=== PATIENT | male | born 1945 | race Caucasian/White ===

== ENCOUNTER → 2018-03-10 05:52 | Day surgery (SDC) | payer MEDICARE ==
--- NOTE | 2018-03-01 08:32 | HP ---
CC: Dr. Lal; Dr. Gabriel; Dr. Nagel ADMITTING HISTORY AND PHYSICAL: DATE OF ADMISSION: 03/10/18 ADMITTING DIAGNOSIS: Bladder lesions (probable transitional cell carcinoma - carcinoma in situ). PLANNED PROCEDURE: Cystoscopy, transurethral resection of bladder lesions. SURGEON: Dr. Nagel. HISTORY OF PRESENT ILLNESS: Sancho Alarcon is a 72-year-old ex-heavy smoker who had recently been seen in followup and had undergone cystoscopy for microscopic hematuria and some increasing voiding symptoms. He was noted to have multiple areas in the posterior bladder wall with an appearance consi stent with superficial transitional cell carcinoma and possibly carcinoma in situ. PAST MEDICAL HISTORY: Significant for: 1. Essential hypertension. 2. Atherosclerosis. 3. Hyperlipidemia. 4. Restrictive cardiomyopathy. 5. Peripheral artery disease. MEDICATIONS: On admission: 1. Metoprolol 50 mg a day. 2. Plavix 75 mg a day (to stop 5 days prior to surgery). 3. Aspirin 81 mg a day. 4. Lisinopril 5 mg a day. 5. Amitriptyline 50 mg q.h.s. 6. Cilostazol 100 mg b.i.d. 7. Crestor 20 mg a day. ALLERGIES: No known drug allergies. SMOKING HISTORY: He is a former heavy smoker with a [id number] smoking history who quit several ye ars ago. REVIEW OF SYSTEMS: He denies any chest pain or shortness of breath. He was also recently evaluated by Dr. Gabriel for followup on his history of cardiomyopathy. PHYSICAL EXAMINATION GENERAL: Reveals a pleasant, elderly gentleman. VITAL SIGNS: Blood pressure is 120/80, pulse 83 per minute, oxygen saturation 93% on room air, tempe rature 96.3. LUNGS: Clear bilaterally. CARDIOVASCULAR: Regular rate and rhythm. S1, S2. ABDOMEN: Soft without masses. Testicles are descended bilaterally and a large right spermatocele is noted. IMPRESSION: A 72-year-old former, heavy smoker with the above described bladder lesions. PLAN: Plan is for cystoscopy, transurethral resection of bladder lesions. [id number]/[facility] #: [id number]
[~2018-03-10 05:52] MED LIST: Acetaminophen TAB* 325 MG ONE; Acetaminophen TAB* 325 MG PO PRN; Buffered Lidocaine 0.9% SYRIN* 5 ML/SYR SYRINGE INTRADERM ONE; Buffered Lidocaine 0.9% SYRIN* 5 ML/SYR SYRINGE ONE; Dexamethasone IV* 4 MG/ML 1 ML (4 MG) ONE; DiMENhydriNATE IV* 50 MG/ML VIAL IV PUSH PRN; Famotidine IV* 10 MG/ML 2 ML (20 mg) IV ONE; Famotidine IV* 10 MG/ML 2 ML (20 mg) ONE; HYDROmorphone INJ1* 1 MG/ML SYRINGE IV PRN; Ketorolac INJ* 30 MG/ML 1 ML VIAL ONE; Lidocaine 2% JELLY* 6 ML JELLY TOPICAL ONE; Lidocaine 2% PF * 5 ML VIAL ONE; Midazolam* 1 MG/ML 5 ML VIAL (5 MG) ONE; Morphine VIAL* 10 MG/ML 1 ML VIAL ONE; Naloxone* 0.4 MG/ML 1 ML VIAL IV PRN; Ondansetron INJ* 2 MG/ML VIAL ONE; Propofol* 10 MG/ML 20 ML BTL IV PUSH ONE; cefTRIAXone(*) 2 GM ADDV.VIAL IVPB ONE; fentaNYL* 50 MCG/ML 2 ML VIAL (100 MCG VIAL) ONE; oxyCODONE TAB* 5 MG TAB ONE; oxyCODONE TAB* 5 MG TAB PO PRN
[2018-03-10 09:57] VITALS: BP 128/73
--- NOTE | 2018-03-10 22:27 | OP ---
CC: Dr. Lal * DATE OF OPERATION: 03/10/18 - [facility] DATE OF : 41 SURGEON: Wali Nagel MD ANESTHESIOLOGIST: Dr. Fall. ANESTHESIA: General. PRE-OP DIAGNOSES: 1. Hematuria. 2. Bladder lesions. POST-OP DIAGNOSES: 1. Hematuria. 2. Bladder lesions. OPERATIVE PROCEDURE: Cystoscopy, transurethral resection and fulguration of multiple bladder lesions (3 to 4 cm). INDICATIONS: Mr. Alarcon is a 72-year-old gentleman who was evaluated and noted to have the above-mentioned bladder lesions. OPERATIVE FINDINGS: 1. Normal appearing urethra. 2. Mildly enlarged prostate. 3. Multiple areas of thickened hyperemic mucosa in posterior and anterior bladder wall (consistent with transitional cell carcinoma-carcinoma in situ). COMPLICATIONS: None. POSTOPERATIVE CONDITION: Stable. DESCRIPTION OF PROCEDURE: After induction of general anesthesia, the patient was placed in dorsal lithotomy position. Sequential compression devices were in place and functioning. Initial cystoscopy revealed a normal-appearing urethra and mildly enlarged prostate and normally located right and left ureteral orifices. Retail Bakery Manager biopsies were obtained and sent for histopathology. The resectoscope was introduced and all of the abnormal appearing areas were resected and/or fulgurated. At the end of the procedure, there was no evidence of bladder perforation and hemostasis appeared satisfactory. The patient tolerated the procedure satisfactorily and was transferred back to the recovery area after placement of a 22-[place] Russell catheter for temporary bladder drainage. [id number]/[facility] #: [id number] MTDD
== END | disposition home or self-care (01) ==
LOC: OR 05:52
PROVIDERS: ATTEND Urology
DX: N32.9 Bladder disorder, unspecified (principal); R31.29 Other microscopic hematuria; Z87.891 Personal history of nicotine dependence; I10 Essential (primary) hypertension; E78.5 Hyperlipidemia, unspecified; I73.9 Peripheral vascular disease, unspecified; I42.8 Other cardiomyopathies; I70.90 Unspecified atherosclerosis; Z79.01 Long term (current) use of anticoagulants
CPT/HCPCS: 88305; A9270-GY; J0696; J1100; J1885; J2250; J2270; J2405; J2704; J3010

== ENCOUNTER → 2018-11-17 05:32 | Day surgery (SDC) | payer MEDICARE ==
--- NOTE | 2018-11-15 15:22 | HP ---
CC: Dr. Lal; Dr. Gabriel * ADMITTING HISTORY AND PHYSICAL: DATE OF ADMISSION: 11/17/18 ADMITTING DIAGNOSES: 1. Hematuria. 2. Bladder lesion, probable carcinoma in situ of urinary bladder. PLANNED PROCEDURE: Cystoscopy and excision biopsies of multiple bladder lesions. SURGEON: Dr. Nagel. HISTORY OF PRESENT ILLNESS: Sancho Alarcon is a 73-year-old former smoker who had undergone transurethral resection of bladder lesions in March 2008. Visually, the lesions at that time had the appearance of carcinoma in situ of the urinary bladder; however, the pathology was reported as completely benign. He was recently seen in followup and on followup cystoscopy, had multiple areas in the anterior and posterior bladder stuart suspicious for carcinoma in situ by visual appearance again and I requested the pathologist to review the pathology report from March 2018, which was successfully done and this time this included that indeed there had been elements of carcinoma in situ, which had not been picked up on the original pathology report. He is now being brought in for cystoscopy and excision biopsies of the bladder lesions. PAST MEDICAL HISTORY: Significant for, 1. Atherosclerosis. 2. Hypertension. 3. History of restrictive cardiomyopathy. 4. Hyperlipidemia. 5. Peripheral artery disease. MEDICATIONS: Include: 1. Plavix 75 mg a day (currently on hold). 2. Aspirin 81 mg a day. 3. Metoprolol 50 mg a day. 4. Amitriptyline 50 mg q.h.s. 5. Lisinopril 5 mg daily. 6. Cilostazol 100 mg b.i.d. 7. Crestor 20 mg daily. ALLERGIES: No known drug allergies. FAMILY HISTORY: Negative for bladder cancer. SMOKING HISTORY: He has a 50 plus pack year smoking history and quit a few years ago. REVIEW OF SYSTEMS: He is otherwise in fairly good health and is still fairly active physically. He denies any chest pain or shortness of breath. PHYSICAL EXAMINATION GENERAL: Reveals a pleasant elderly gentleman. VITAL SIGNS: Blood pressure is 124/66, pulse 84 per minute, oxygen saturation 93% on room air, temperature 96.8. LUNGS: Clear bilaterally. CARDIOVASCULAR EXAM: Regular rate and rhythm. S1, S2. ABDOMEN: Soft without masses. IMPRESSION: A 73-year-old former smoker with multiple bladder lesions, suspicious for carcinoma in situ of the urinary bladder. PLAN: Cystoscopy, excision biopsies of multiple bladder lesions. [id number]/[facility] #: [id number] MTDD
[~2018-11-17 05:32] MED LIST changes: -Acetaminophen TAB* 325 MG ONE; -Acetaminophen TAB* 325 MG PO PRN; -Buffered Lidocaine 0.9% SYRIN* 5 ML/SYR SYRINGE INTRADERM ONE; -Buffered Lidocaine 0.9% SYRIN* 5 ML/SYR SYRINGE ONE; +Buffered Lidocaine 1% SYRIN* 1 ML/SYRINGE INTRADERM ONE; -Dexamethasone IV* 4 MG/ML 1 ML (4 MG) ONE; +Etomidate* 2 MG/ML 10 ML VIAL ONE; +Furosemide IV* 10 MG/ML 2 ML VIAL (20 MG) ONE; -HYDROmorphone INJ1* 1 MG/ML SYRINGE IV PRN; -Ketorolac INJ* 30 MG/ML 1 ML VIAL ONE; +Lactated Ringers 1000 ML Bag* 1,000 ML IV SCH; +Levalbuterol 1.25MG/0.5ML NEB INH ONE; +Levalbuterol 1.25MG/0.5ML NEB ONE; +Metoclopramide IV* 5 MG/ML 2 ML VIAL IV SLOW PU ONE; +Metoclopramide IV* 5 MG/ML 2 ML VIAL ONE; -Midazolam* 1 MG/ML 5 ML VIAL (5 MG) ONE; -Morphine VIAL* 10 MG/ML 1 ML VIAL ONE; +Phenylephrine 10 MG/ML VIAL* 1 ML VIAL ONE; -Propofol* 10 MG/ML 20 ML BTL IV PUSH ONE; -oxyCODONE TAB* 5 MG TAB ONE; -oxyCODONE TAB* 5 MG TAB PO PRN
[2018-11-17] MEDS: fentaNYL* 50 MCG/ML 2 ML VIAL (100 MCG VIAL) IV PRN ×2 (08:56→09:19)
--- NOTE | 2018-11-17 09:30 | OP ---
CC: Dr. Lal * DATE OF OPERATION: 11/17/18 - [facility] DATE OF : 41 SURGEON: Dr. Nagel. ANESTHESIOLOGIST: Dr. Langford. ANESTHESIA: General. PRE-OP DIAGNOSIS: Multiple bladder lesions with an appearance suspicious for carcinoma in situ of the urinary bladder. POST-OP DIAGNOSIS: Multiple bladder lesions with an appearance suspicious for carcinoma in situ of the urinary bladder. OPERATIVE PROCEDURE: Cystoscopy, excision, biopsy, and fulguration of multiple bladder lesions. COMPLICATIONS: None. BLOOD LOSS: Less than 25 cc. INDICATIONS: Sancho Alarcon is a 73-year-old former smoker who was recently seen in followup and noted to have the above-mentioned findings on office cystoscopy. He is now being brought in for excision, biopsies and fulguration. OPERATIVE FINDINGS: 1. Mildly enlarged prostate. 2. Multiple areas of thickened, raised hyperemic mucosa especially in the posterior bladder wall with an appearance suspicious for carcinoma in situ. POSTOPERATIVE CONDITION: Stable. DESCRIPTION OF PROCEDURE: After induction of general anesthesia, the patient was placed in dorsal lithotomy position, sequential compression devices were in place and functioning. Initial cystoscopy revealed mild narrowing of the urethral meatus, which was carefully dilated. The remainder of the urethra was unremarkable. The prostate is mildly enlarged. The bladder was examined. The right and left ureteral orifices appeared normal in position and configuration. There were multiple areas, especially in the posterior bladder wall, more predominantly on the right side where the mucosa was raised, thickened, and hyperemic. Using cold cup biopsy forceps, multiple excision biopsies were performed and sent for histopathology. Next, the resectoscope was introduced and the areas that had been biopsied were extensively cauterized using the coagulating current. At the end of the procedure, hemostasis appeared satisfactory and there was no evidence of bladder perforation. A 22-Bulgarian silicone Russell was placed without difficulty and connected to a drainage bag. The patient tolerated the procedure satisfactorily and was transferred back to the recovery area in stable condition. [id number]/[facility] #: [id number] MTDD
[2018-11-17 11:10] VITALS: BP 163/78
== END | disposition home or self-care (01) ==
LOC: OR 05:32
PROVIDERS: ATTEND Urology
DX: D09.0 Carcinoma in situ of bladder (principal); Z87.891 Personal history of nicotine dependence; I10 Essential (primary) hypertension; E78.5 Hyperlipidemia, unspecified; Z79.01 Long term (current) use of anticoagulants; E11.9 Type 2 diabetes mellitus without complications; Z79.84 Long term (current) use of oral hypoglycemic drugs; F41.8 Other specified anxiety disorders; J44.9 Chronic obstructive pulmonary disease, unspecified; I25.5 Ischemic cardiomyopathy
CPT/HCPCS: 88305; A9270-GY; J0696; J1940; J2405; J2765; J3010

== ENCOUNTER 2019-06-06 05:04 | Inpatient (IN) | payer MEDICARE ==
[2019-06-06] MEDS ORDERED: Heparin for STEMI(*) 5,000 UNITS/ML 1 ML VIAL IV ONE ×2 (05:17→05:20)
[2019-06-06] MEDS ORDERED: Aspirin 81 mg CHEW TAB* 81 MG TAB.CHEW PO ONE (05:17)
[2019-06-06] MEDS ORDERED: Ticagrelor* 90 MG TAB PO ONE ×2 (05:17→05:20)
[2019-06-06] MEDS ORDERED: Nitroglycerin TAB 0.4 MG* 0.4 MG TAB ONE (05:20)
[2019-06-06] MEDS ORDERED: Aspirin 81 mg CHEW TAB* 81 MG TAB.CHEW ONE (05:20)
[2019-06-06] MEDS ORDERED: Ondansetron INJ* 2 MG/ML VIAL ONE (05:21)
[2019-06-06] MEDS ORDERED: Morphine 4 MG/ML VIAL (1 ml) 4 MG/ML VIAL ONE (05:21)
--- NOTE | 2019-06-06 05:22 | ED ---
HPI Chest Pain - HPI Summary HPI Summary: The patient is a 74 y/o M presenting to [facility] accompanied by with a chief complaint of mid-sternal CP sudden onset about two hours ago that has resolved. He reports that he was woken up by the pain which continued to worsen for two hours but then resolved upon arrival. The pain did not radiate anywhere. He denies any SOB, nausea, diaphoresis, or lightheadedness. He is not in any pain. He states that this is the third episode of similar pain over the last few weeks. His rubber chemist is Dr. Gabriel. PMHx: DM, CAD, iliac stent, HTN, peripheral vascular disease, asthma. Former smoker, occasional EtOH, no substance use. Medications reviewed. Allergies noted. - History of Current Complaint Chief Complaint: EDChestPainROMI Hx Obtained From: Patient Onset/Duration: Started Hours Ago, Resolved Timing: Lasting Hours - two Initial Severity: Severe Current Severity: None Pain Intensity: 0 Pain Scale Used: 0-10 Numeric Chest Pain Location: Mid Sternal Chest Pain Radiates: No Character: Sharp/Stabbing Aggravating Factor(s): Nothing Alleviating Factor(s): Spontaneous Resolution Associated Signs and Symptoms: Positive: Chest Pain. Negative: Shortness of Breath, Lightheadedness, Diaphoresis, Nausea - Allergy/Home Medications Allergies/Adverse Reactions: Allergies Allergy/AdvReac Type Severity Reaction Status Date / Time No Known Allergies Allergy Verified 06/06/19 05:15 Home Medications: Home Medications Rosuvastatin Calcium 20 mg PO DAILY 06/06/19 [History Confirmed 06/06/19] PMH/Surg Hx/FS Hx/Imm Hx Endocrine/Hematology History: Reports: Hx Diabetes - BORDERLINE. NO MEDS. Cardiovascular History: Reports: Hx Coronary Artery Disease - 2008 ILIAC STENT, Hx Hypertension, Hx Peripheral Vascular Disease - stent right leg, Other Cardiovascular Problems/Disorders - cardiomyopathy Respiratory History: Reports: Hx Asthma - INTERMITTENT NO INHALER History: Reports: Other Problems/Disorders - CYSTO BIOPSY Sensory History: Reports: Hx Contacts or Glasses - GLASSES Denies: Hx Hearing Aid Opthamlomology History: Reports: Hx Contacts or Glasses - GLASSES - Surgical History Surgical History: Yes Surgery Procedure, Year, and Place: RIGHT ILIAC ARTERY ANGIOPLASTY, STENT 2007 [facility] [place]. 2015, left ring trigger finger. larygeal polyps, 2006. 1970, foot fx Hx Anesthesia Reactions: No Infectious Disease History: No Infectious Disease History: Denies: Traveled Outside the [place] in Last 30 Days - Family History Known Family History: Positive: Hypertension - Social History Alcohol Use: Occasionally Alcohol Amount: holidays Hx Substance Use: No Substance Use Type: Reports: None Hx Tobacco Use: Yes Smoking Status (MU): Former Smoker Amount Used/How Often: 2 packs a aday for 50 yrs Length of Time of Smoking/Using Tobacco: 40 YRS Have You Smoked in the Last Year: No Review of Systems Negative: Skin Diaphoresis Positive: Chest Pain - mid-sternal (resolved) Negative: Shortness Of Breath Negative: Nausea Neurological: Other - Negative: lightheadedness All Other Systems Reviewed And Are Negative: Yes Physical Exam - Summary Physical Exam Summary: Appearance: Well-appearing, Well-nourished, lying in bed comfortably Skin: Warm, dry, no obvious rash Eyes: sclera anicteric, no conjunctival pallor ENT: mucous membranes moist, pharynx appears normal Neck: Supple, nontender Respiratory: Clear to auscultation, no signs of respiratory distress Cardiovascular: Normal S1, S2. No murmurs. Normal distal pulses in tibial and radial bilaterally. Abdomen: Soft, nontender, normal active bowel sounds present Musculoskeletal: Normal, Strength/ROM Intact Neurological: A&Ox3, awake and alert, mentation is normal, speech is fluent and appropriate Psychiatric: affect is normal, does not appear anxious or depressed Triage Information Reviewed: Yes Vital Signs On Initial Exam: Initial Vitals Temp Pulse Resp BP Pulse Ox 98.4 F 116 15 149/77 90 06/06/19 05:13 06/06/19 05:13 06/06/19 05:13 06/06/19 05:13 06/06/19 05:13 Vital Signs Reviewed: Yes Procedures - Sedation Patient Received Moderate/Deep Sedation with Procedure: No Diagnostics - Vital Signs Vital Signs Temp Pulse Resp BP Pulse Ox 06/06/19 05:13 98.4 F 116 15 149/77 90 - Laboratory Result Diagrams: 06/06/19 05:30 06/06/19 05:30 Lab Statement: Any lab studies that have been ordered have been reviewed, and results considered in the medical decision making process. - Radiology CXR Radiology Interpretation Completed By: ED Physician Summary of Radiographic Findings: No acute abnormality. ED physician has reviewed and interpreted this imaging report. Pending official read. - EKG 0506 Cardiac Rate: Tachycardia - 116 bpm EKG Rhythm: Sinus Tachycardia Summary of EKG Findings: Sinus tachycardia at [address] elevations in aVR with lateral depressions. ED physician has reviewed and interpreted this EKG. 0517 Cardiac Rate: Tachycardia - 103 bpm EKG Rhythm: Sinus Tachycardia Summary of EKG Findings: Sinus tachycardia at [address] elevations in aVR with lateral and inferior depressions. Improved compared to previous. ED physician has reviewed and interpreted this EKG. Re-Evaluation - Re-Evaluation First Eval Re-Evaluation Time: 05:30 Change: Unchanged Comment: Patient still in no pain. Chest Pain Course/Dx - Course Course Of Treatment: 74 y/o M presenting with non-radiating mid-sternal CP lasting for two hours before completely resolving immediately before arriving. No associated symptoms of SOB, nausea, diaphoresis, or lightheadedness. History of DM, CAD, iliac stent, HTN, peripheral vascular disease, asthma. Physical exam reveals no acute abnormalities. EKG at 0506 reveals sinus tachycardia at 116, ST elevations in aVR with lateral depressions. STEMI called at 0515. EKG at 0517 reveals sinus tachycardia at 103 bpm, ST elevations in aVR with lateral and inferior depressions, better compared to previous. STEMI cancelled at 0534, per Dr. Jackson, interventionalist. Blood work obtained and reveals RBCs of 4.00 , hemoglobin of 12.7, hematocrit of 37, MCH of 32, MPV of 7.0, glucose of 200, and troponin of 1.14. Patient administered Brilinta, Zofran, NTG, Heparin, ASA, and Morphine. Chest x-ray, per my interpretation, is negative for acute findings. The patient is a sign-out from Dr. Sancho Mary MD, to Dr. Doe Bach MD, at change of shift at 0700 on 06/06/2019, pending admission to hospitalist. Dx NSTEMI. - Diagnoses Provider Diagnoses: NSTEMI (non-ST elevated myocardial infarction) During the Visit The Following Alert/Code Occurred: STEMI - 0515; cancelded at 0534 - Provider Notifications Discussed Care Of Patient With: Robles Jackson - interventionalist Time Discussed With Above Provider: 05:19 Instructed by Provider To: Other - I discussed the patient's case with Dr. Jackson, who will look at the patients EKGs and return the call. AT 0534, Dr. Jackson cancels STEMI as the patient is pain-free. Dr. Jackson recommends admission to hospitalist. Discharge ED - Sign-Out/Discharge Documenting (check all that apply): Sign-Out Patient Signing out patient TO: Doe Bach - Patient is a sign-out to Dr. Doe Bach MD, at 0700 on 06/06/2019, pending admission to hospitalist. - Discharge Plan Condition: Stable Referrals: Chris Lal MD [Primary Care Provider] - - Attestation Statements Document Initiated by Scribe: Yes Documenting Scribe: Geetha Carolina Provider For Whom Scribe is Documenting (Include Credential): Dr. Sancho Mary MD Scribe Attestation: IGeetha, scribed for Dr. Sancho Mary MD on 06/06/19 at 0727. Status of Scribe Document: Ready
[2019-06-06 06:00] LABS: ABS Eosinophils 0.3 10^3/ul (0-0.6); ABS Lymphocytes 1.4 10^3/ul (1.0-4.8); ABS Monocytes 0.7 10^3/ul (0-0.8); ABS Neutrophils 3.9 10^3/ul (1.5-7.7); Hematocrit 37 % (42-52); Hemoglobin 12.7 g/dL (14.0-18.0); Lymphocyte % 22.1 %; Mean Corpuscular HGB Conc 34 g/dL (31-36); Mean Corpuscular Hemoglobin 32 pg (27-31); Mean Corpuscular Volume 94 fL (80-94); Nucleated Red Blood Cells % 0.2; Platelet Count 197 10^3/uL (150-450); Red Cell Distribution Width 14 % (10-15); White Blood Count 6.3 10^3/uL (3.5-10.8)
[2019-06-06 06:05] LABS: INR 0.92 (0.82-1.09)
[2019-06-06 06:18] LABS: ALT 22 U/L (7-52); AST 27 U/L (13-39); Albumin 3.8 g/dL (3.2-5.2); Albumin/Globulin Ratio 1.5 (1-3); Alkaline Phosphatase 99 U/L (34-104); Anion Gap 7 mmol/L (2-11); BUN/Creatinine Ratio 21.3 (8-20); Blood Urea Nitrogen 23 mg/dL (6-24); CO2 Carbon Dioxide 28 mmol/L (22-32); Calcium 8.7 mg/dL (8.6-10.3); Chloride 104 mmol/L (101-111); EGFR African American 80.4 (>60); EGFR Non-African American 66.5 (>60); Globulin 2.6 g/dL (2-4); Glucose 200 mg/dL (70-100); LDL Cholesterol Direct 61 mg/dL; Sodium 139 mmol/L (135-145); Total Protein 6.4 g/dL (6.4-8.9)
[2019-06-06 06:24] LABS: Troponin I 1.14 ng/mL (<0.03)
--- NOTE | 2019-06-06 07:09 | ED ---
Progress - Progress Note Progress Note: Patient is a sign-out at 07:00 on 06/06/[address] Sancho Mary MD to Dr. Doe Bach MD at shift change, pending further workup and admission to [facility]. At 07:10, patient states he had hematuria. His chest pain is resolved after being given aspirin and started on a heparin drip. At 07:58, Dr. Mirian Marquez reviewed the patient's case and agrees to admit the patient to [facility] with a diagnosis of acute IN. Patient will be admitted to [facility] with a diagnosis of acute IN. Re-Evaluation - Re-Evaluation First Eval Re-Evaluation Time: 05:30 Change: Unchanged Comment: Patient still in no pain. Second Eval Re-Evaluation Time: 07:10 Change: Improved Comment: At 07:10, patient states he had hematuria. His chest pain is resolved after being given aspirin and started on a heparin drip. Course/Dx - Course Course Of Treatment: 74 y/o M presenting with non-radiating mid-sternal CP lasting for two hours before completely resolving immediately before arriving. No associated symptoms of SOB, nausea, diaphoresis, or lightheadedness. History of DM, CAD, iliac stent, HTN, peripheral vascular disease, asthma. STEMI called at 0515 and canceled at 0534, per Dr. Jackson, interventionalist. Blood work obtained and reveals RBCs of 4.00, hemoglobin of 12.7, hematocrit of 37, MCH of 32, MPV of 7.0, glucose of 200, and troponin of 1.14. Patient administered Brilinta, Zofran, NTG, Heparin, ASA, and Morphine. - Diagnoses Provider Diagnoses: NSTEMI (non-ST elevated myocardial infarction), Acute IN During the Visit The Following Alert/Code Occurred: STEMI - 0515; cancelded at 0534 - Provider Notifications Discussed Care Of Patient With: Mirian Marquez - At 07:58, Dr. Mirian Marquez reviewed the patient's case and agrees to admit the patient to [facility] with a diagnosis of acute IN. Time Discussed With Above Provider: 07:58 Instructed by Provider To: Admit As Inpatient - I discussed the patient's case with Dr. Jackson, who will look at the patients EKGs and return the call. AT 0534, Dr. Jackson cancels STEMI as the patient is pain-free. Discharge ED - Sign-Out/Discharge Documenting (check all that apply): Patient Departure - Admit - Discharge Plan Condition: Stable Disposition: ADMITTED TO [facility] Referrals: Chris Lal MD [Primary Care Provider] - - Attestation Statements Document Initiated by Scribe: Yes Documenting Scribe: Essie Rey Provider For Whom Scribe is Documenting (Include Credential): Doe Bach MD Scribe Attestation: Essie Palencia, scribed for Doe Bach MD on 06/06/19 at 0806. Status of Scribe Document: Ready
[2019-06-06] MEDS ORDERED: Heparin VIAL(*) 10000 UNITS/ML VIAL (TEN THOUSAND) SUBCUT PRN (07:39)
[2019-06-06] MEDS ORDERED: Heparin VIAL(*) 5000 UNITS/ML VIAL (FIVE THOUSAND) SUBCUT PRN (07:40)
[2019-06-06] MEDS: Heparin DRIP 25,000 UNITS(*) 25,000 UNITS/500 ML BAG IV SCH (07:54)
[2019-06-06] MEDS ORDERED: Acetaminophen TAB* 325 MG PO PRN (08:21)
[2019-06-06 08:44] LABS: Troponin I 1.13 ng/mL (<0.03)
[2019-06-06] MEDS ORDERED: Cilostazol TAB* 100 MG PO SCH (09:00)
[2019-06-06] MEDS ORDERED: Lisinopril TAB* 5 MG PO SCH (09:00)
--- NOTE | 2019-06-06 09:43 | CONS ---
CC: Dr. Lal; Dr. Gabriel.* INTERVENTIONAL CARDIOLOGY CONSULT NOTE: DATE OF CONSULT: 06/06/19 PRIMARY CARE PHYSICIAN: Dr. Lal. BEAN DUMPER: Dr. Gabriel. HISTORY OF PRESENT ILLNESS: A 74-year-old male with diabetes, peripheral arterial disease with the diagnosis of "nonischemic cardiomyopathy" brought to the ER by his because of prolonged chest pain. Interventional Cardiology was consulted because of diffuse ST segment depression. I have reviewed [facility] and [facility]. Apparently, the diagnosis of nonischemic cardiomyopathy is based on a Persantine perfusion scan in 2007 that revealed a fixed inferior wall defect, which corrected with attenuation correction, and an echo that reported ejection fraction of 45%. As far as I can ascertain, he has never had a coronary angiogram. His most recent echo reported some dilatation of ascending aorta and LVEF of 50% to 55% with normal wall motion. He has no antecedent history of known coronary artery disease. For the past 3 weeks, he has had 3 episodes of precordial chest discomfort, each one at night. It is a deep ache, which is substernal without radiation or associated symptoms, it usually lasts 1-1/2 to 2 hours and then resolves spontaneously. He had 1 of these episodes this morning at 3:30, it was resolved spontaneously after he arrived in the ER. EKG at 0506 hours revealed sinus tach at [address] depression in inferior and anterolateral leads with normal conduction. Repeat EKG 11 minutes later when he was pain-free revealed a heart rate of 103 with less, but still persisting inferior and lateral ST depression. He is presently completely chest pain-free, comfortable. He reports chronic exertional dyspnea for many years with intermittent edema. He is a former heavy smoker. He has never been diagnosed with COPD, does not use bronchodilators. He has a history of peripheral arterial disease with prior apparently right superficial femoral artery intervention here by Dr. Parnell around 2007. CTA at that time reported none of critical bilateral iliac disease and right SFA occlusion. I do not see a subsequent CTA. He follows with Dr. Chase of [place] , he is scheduled to see her down here next spring. He does have bilateral limiting claudication in his calves, no rest pain, no nonhealing wounds. PAST MEDICAL HISTORY: Hypertension, hyperlipidemia, diabetes on no medical therapy for which he does not follow any particular diet, prior bladder CA, post apparently per patient transurethral resection followed by BCG. He follows with Dr. Nagel. PAD. PREHOSPITAL MEDICATIONS PER MEDENT: 1. Aspirin 81 mg daily. 2. Pletal 100 mg b.i.d. 3. Crestor 20 mg daily. 4. Lisinopril 5 mg daily. 5. Toprol-XL 50 mg daily. 6. Plavix 75 mg daily. ALLERGIES: None. FAMILY HISTORY: Negative for premature coronary artery disease. SOCIAL HISTORY: He is . He is a former heavy smoker. Former alcohol user. REVIEW OF SYSTEMS: COAT CHECKER: No history of TIA or CVA. GI: He denies peptic ulcer disease or bleeding. Heme: No history of malignancy or anemia. Pulmonary: He confirms long-term wheezing. Remainder all negative PHYSICAL EXAM: On exam in the ER, he is pain-free, he is comfortable, he is not tachypnea or orthopneic. Blood pressure 153/75, pulse 105, sinus tach. His lungs he has bilaterally prolonged expiratory phase with expiratory wheezing. JVP does not appear to be elevated. Carotids are palpable with a very loud right carotid bruit and a soft left carotid bruit. Cardiac Exam: I cannot feel the apex or RV. He does have a probable S4 gallop, I do not hear a murmur or rub. The abdomen is obese, nontender, with normal bowel sounds, cannot feel the aorta or liver edge. Femoral pulses are palpable but diminished. Radial pulses are normal. Pedal pulses are diminished with a palpable posterior tibial bilaterally, palpable left dorsalis pedis, I cannot palpate his right dorsalis pedis. He has no obvious wounds, his feet do not have ischemic skin changes. DIAGNOSTIC STUDIES/LAB DATA: Hemoglobin is 12.7, hematocrit 37, was normal earlier this year. He is not microcytic. INR is normal, random blood sugar is 200, lactate 1.2, troponin elevated at 1.14. His LDL is 61. Chest x-ray by my review shows no acute infiltrate or heart failure on a portable film. There may be a slight vascular prominence. IMPRESSION: 1. Acute coronary syndrome/non-ST elevation infarct. He has had prolonged episodes 3 times in the past 3 weeks, today's episode was prolonged, accompanied by transient diffuse ST depression, which was improved significantly with resolution of chest pain spontaneously. EKG is consistent with posterior infarct as well as a non-ST elevation infarct. He will be treated medically. He is not having emergent catheterization as he is currently hemodynamically and electrically stable, pain- free and there is an issue of potential vascular access. I doubt that there is any problem with radial access, but he may have sufficiently severe iliofemoral disease to be an issue in case he needed counterpulsation. This will need to be evaluated. I discussed with him and his that he almost certainly will need further cardiac investigation with likely a coronary angiography. In the ER, he received a loading dose of Brilinta, heparin, and aspirin. 2. Chronic obstructive pulmonary disease. By exam, he has expiratory wheezing consistent with chronic obstructive pulmonary disease. He is on no inhaler therapy. I will defer to the hospitalist service for management. 3. Diabetes, untreated and likely uncontrolled. Hemoglobin A1c is pending. 4. Hypertension, on low-dose lisinopril. 5. Bladder cancer. He has never had hematuria with his current noninvasive cancer, which is under treatment and according to the patient apparently stable. He will be admitted to the hospital service, we will follow, evaluate the vascular access noninvasively. In the interim, he will be treated medically for acute coronary syndrome. Dr. Young will be following. Thank you for the consultation. [id number]/[facility] #: [id number] ELOISE
--- NOTE | 2019-06-06 10:50 | ECHO ---
*[facility]* [place] [address] Fax #: [phone] Transthoracic Echocardiogram Patient: Sancho Alarcon : 1945 Study Date: 06/06/2019 Age: 74 Gender: M HR: 84 bpm Height: 68 in /172.7 cm BSA: 1.98 m^2 Weight: 184.6 lb /83.9 kg BMI: 28.1 kg/m^2 *Solar Sales Representative: * Tika Ulloa *Referring Physician: * Robles Jackson MD *Reading Physician: * Clement Salazar MD Indications: Chest Pain, unspecified. History: Coronary artery disease. Risk factors: Hypertension. Diabetes mellitus. Conclusions Summary: - Left ventricle: The cavity size is normal. Wall thickness is mildly increased. Systolic function is mildly reduced. The estimated ejection fraction is 40-45%. Diffuse hypokinesis with regional variations. Patient declined definity imaging enhancement agent to better visualize endocardium which limits wall motion evaluation - Right ventricle: The cavity size is normal. Systolic function is normal. - Left atrium: The atrium is normal in size. - Pulmonary arteries: Systolic pressure can not be accurately estimated. - No significant valvular abnormalities noted. Recommendations: Compared to prior study from 10/2017, LVEF was previously 50-55% Study data: Transthoracic echocardiogram. Procedure: Transthoracic echocardiography was performed. Image quality was adequate. Complete 2D, spectral Doppler, and color flow Doppler. Location: Emergency department. Patient status: Inpatient. Patient room number: 5. Findings Left ventricle: The cavity size is normal. Wall thickness is mildly increased. Systolic function is mildly reduced. The estimated ejection fraction is 40-45%. Diffuse hypokinesis with regional variations. Patient declined definity imaging enhancement agent to better visualize endocardium which limits wall motion evaluation Left ventricular diastolic function parameters are normal. Right ventricle: The cavity size is normal. Systolic function is normal. Left atrium: The atrium is normal in size. Right atrium: The atrium is normal in size. Mitral valve: The valve is structurally normal. There is no evidence of stenosis. There is trace regurgitation. Aortic valve: Not well visualized. The valve is probably trileaflet. There is no evidence of stenosis. There is no significant regurgitation. Tricuspid valve: The leaflets are normal thickness. There is no evidence of stenosis. There is trace regurgitation. Pulmonic valve: The leaflets are normal thickness. There is no evidence of stenosis. There is trace regurgitation. Aorta: The aortic root appears normal. The aortic arch appears normal. Pericardium: There is no significant pericardial effusion. Pulmonary arteries: Systolic pressure can not be accurately estimated. Systemic veins: Inferior vena cava: The vessel is normal in size. Measurements Left ventricle Value Ref Aortic valve Value Ref SCOTTIE, LAX (L) 3.6 cm 4.2 - Peak v, S 1.44 m/sec ---- 5.8 VTI, S 26.0 cm ---- ESD, LAX 2.5 cm 2.5 - Mean grad, S 4.0 mm Hg ---- 4.0 Peak grad, S 8.0 mm Hg ---- FS, LAX 31 % 25 43 VERNON, VTI 2.11 cm^2 ---- PW, ED, LAX (H) 1.4 cm 0.6 - VERNON, Vmax 2.10 cm^2 ---- 1.0 FS 31 % 25 43 Mitral valve Value Ref Mid-wall FS 9 % -------- Peak E 0.8 m/sec ---- PW, ED (H) 1.4 cm 0.6 - Peak A 1.16 m/sec ---- 1.0 Decel time 123 ms ---- PW/ID, ED 0.39 -------- Peak grad, D 2.6 mm Hg ---- E', avg, TDI 9.7 cm/sec -------- Peak E/A ratio 0.7 ---- E/e', avg, TDI 8 <=14 Pulmonic valve Value Ref LVOT Value Ref Peak v, S 0.89 m/sec ---- Diam, S 2.00 cm -------- Peak grad, S 3.0 mm Hg ---- Area 3.1 cm^2 -------- Peak lakia, S 0.96 m/sec -------- Aortic root Value Ref Mean grad, S 2 mm Hg -------- Root diam 3.4 cm <4.1 SV 55 ml -------- Ascending aorta Value Ref Ventricular septum Value Ref AAo AP diam, S 3.2 cm ---- IVS, ED (H) 1.4 cm 0.6 - 1.0 Aortic arch Value Ref Arch diam 2.1 cm ---- Right ventricle Value Ref SCOTTIE, LAX 3.0 cm -------- Decending aorta Value Ref SCOTTIE minor ax, A4C 3.5 cm 1.9 - Carmen peak lakia 0.61 m/sec ---- mid 3.5 Inferior vena cava Value Ref Left atrium Value Ref Diam 2.6 cm ---- ML dim, A4C 3.3 cm -------- SI dim, A4C 4.4 cm -------- Vol/bsa, ES, 1-p 19 ml/m^2 12 - 37 A4C Vol/bsa, ES, A/L 22 ml/m^2 16 - 34 Right atrium Value Ref SI dim, ES 3.8 cm 3.4 - 5.3 ML dim, ES, A4C 2.9 cm 2.6 - 4.4 SI dim, ES, A4C 3.8 cm 3.4 - 5.3 Legend: (L) and (H) collin values outside specified reference range. Prepared and electronically signed by Clement Salazar MD 06/06/2019 10:50
[2019-06-06] MEDS: Aspirin EC TAB* 81 MG TAB.EC PO SCH (10:54)
[2019-06-06] MEDS: Cholecalciferol TAB* 1000 UNITS PO SCH (10:54)
[2019-06-06] MEDS: Vitamin THERAPEUTIC TAB PO SCH (10:55)
[2019-06-06] MEDS: Metoprolol Tartrate TAB* 25 MG PO SCH ×3 (10:55→20:07)
[2019-06-06] MEDS: Lisinopril TAB* 5 MG PO SCH (10:55)
[2019-06-06] MEDS: Clopidogrel TAB* 75 MG PO SCH (10:55)
--- NOTE | 2019-06-06 12:01 | HP ---
CC: Dr. Lal; Dr. Gabriel; Dr. Chase; Dr. Nagel HISTORY AND PHYSICAL: DATE OF ADMISSION: 06/06/19 TIME OF EVALUATION: 8:15 a.m. PRIMARY CARE PROVIDER: Dr. Lal. BOAT CAPTAIN: Dr. Gabriel. VASCULAR SURGEON: Dr. Chase at [facility]. UROLOGIST: Dr. Nagel. CHIEF COMPLAINT: Chest pain. HISTORY OF PRESENT ILLNESS: Mr. Alarcon is a 74-year-old male with a past medical history of hyper tension, hyperlipidemia, peripheral arterial disease, bladder CA who presented to the ED with complai nts of chest pain. The patient states that this is his third episode of chest pain over the past 2 weeks. He states this is the first episode he was sleeping and was woken up by retrosternal "ache" that he r ated at 5/10. The pain resolved by itself and he had no associated symptoms. He was able to return to sleep and did not seek any medical attention. He states that a week after that he had another sim ilar episode and once again the symptoms resolved by itself and he did not do anything about it. Ravin y today around 3:30 in the morning, he woke up with the same retrosternal ache, but he states that th is time it was severe, 10/10 intensity, and at that point, he decided to come to the emergency room f or further evaluation. He denies palpitations, diaphoresis, nausea, shortness of breath, or other sy mptoms associated with it. He states that by the time he got to the emergency department room, the p ain completely resolved, and at the time of interview, he offers no complaints. He states that he has exercise limitation due to his peripheral vascular disease causing vascular cla udication. He can walk a block on the flat surface. He can go upstairs, but he needs to take breaks to be able to do so, but he states that he used to be able to exercise much more in the past and now his leg pain limits him. He denies fever, chills, nausea, vomiting, diarrhea. The patient states that after arriving in the ospital he has voided twice and both had significant hematuria with macias-red urine. He states that he has not had hematuria for many months after completing treatment with Dr. Robe for bladder CA. PAST MEDICAL HISTORY: 1. Bladder CA (probable carcinoma in situ), status post excision biopsies with Dr. Nagel, November 2018 pathology revealed urothelial carcinoma in situ. 2. Hypertension. 3. Hyperlipidemia. 4. Peripheral arterial disease, status post stent to the right lower extremity. MEDICATION LIST: 1. Amitriptyline 50 mg p.o. bedtime. 2. Aspirin 81 mg p.o. daily. 3. Cholecalciferol 1000 units p.o. daily. 4. Cilostazol 100 mg p.o. b.i.d. 5. Clopidogrel 75 mg p.o. at bedtime. 6. Lisinopril 5 mg p.o. daily. 7. Metoprolol tartrate 50 mg p.o. daily. 8. Multivitamin 1 capsule p.o. daily. 9. Ropinirole 0.25 mg p.o. at bedtime. 10. Rosuvastatin 10 mg p.o. daily. ALLERGIES: No known drug allergies. FAMILY HISTORY: The patient denies family history of heart disease or malignancy. He does not rememb er what his parents of. SOCIAL HISTORY: The patient was a smoker, greater than 50-pack year history, and he quit when his wi fe was diagnosed with lung cancer (she was a smoker too). He quit in 2008. REVIEW OF SYSTEMS: A 14-point review of systems performed and all the pertinent negatives and positi ves are in the HPI. PHYSICAL EXAMINATION GENERAL: The patient is pleasant elderly gentleman lying in the ED stretcher, in no acute distress. VITAL SIGNS: Temperature 98.4, heart rate is 96, respiratory rate is 24, oxygen saturation 95% on ro om air, blood pressure is 158/73. HEENT: Pupils are equal. Moist mucous membranes. CHEST: Breath sounds bilaterally with no added sounds. CVS: Normal S1, S2. Regular rate and rhythm. ABDOMEN: Obese, soft, nontender, nondistended. Bowel sounds are present. EXTREMITIES: No edema. He has DP pulses palpable. NEUROLOGIC: He is alert and oriented x3, able to move all 4 extremities. DIAGNOSTIC STUDIES/LAB DATA: CBC showed WBC of 6.3, hemoglobin of 12.7, hematocrit of 37, platelets of 197, 62% neutrophils. INR is 0.92. Chemistry showed a sodium of 139, potassium of 4, chloride o f 104, bicarb of 28, BUN of 23, creatinine of 1.08. glucose of 200, lactic acid is 1.2, calcium is 8. 7. Total bilirubin 0.3, AST is 27, ALT is 22, alk phos 99. First troponin was 1.14, second one is 1 .13. BNP is 48. LDL is 61. EKG done 06/06/19 at 5:06 a.m. shows sinus tachycardia at 116 beats per minute with diffuse ST depres sions in II, III, aVF, V3 through V6; ST elevations in AVR and V1. Repeat EKG on the same date at 5:1 7 a.m. showed some improvement of the ST changes especially in II, III, aVF, but still present in the lateral leads. Chest x-ray shows trace linear air space opacification at the right lung base that could be related t o atelectasis versus infiltrate. ASSESSMENT AND PLAN: Mr. Alarcon is a 74-year-old male with a past medical history of hypertension , hyperlipidemia, peripheral arterial disease, bladder cancer who presented to the emergency room wit h complaints of chest pain, found to have an ST elevation myocardial infarction. 1. ST elevation myocardial infarction. The patient had resolution of his [facility]. He was seen in consultation by Interventional Cardiology (Dr. Jackson), and due to his hi story of peripheral vascular disease with prior stenting, the plan at this point is to have vascular studies done of his aorta and iliac for preparation for cardiac cath. He will be continued on aspirin, clopidogrel (after discussion with Dr. Jackson, decision was made to not switch him to Brilinta at this time), and a heparin drip as well as the cilostazol he was using b efore. He will be admitted to the Intensive Care Unit and he will be under close monitoring until decision i s made regarding cardiac cath. He will be on metoprolol and lisinopril. His statin was changed to high dose atorvastatin. 2. Hyperglycemia. Although the patient does not carry a diagnosis of type 2 diabetes, his fasting g lucose was 200, granted this was in the setting of stress. We will check a hemoglobin A1c. 3. Hypertension. It is controlled. We will continue lisinopril and metoprolol. 4. DVT prophylaxis. The patient has a score of 3 on the DVT Prophylaxis Assessment Guide. He is al ready on the heparin drip. 5. Code status is full. TIME SPENT: Approximately 60 minutes was spent with the patient interview, medical records review, r eview of physical examination to complete this admission, more than half of this time was spent face- to-face with the patient and coordination of care. [id number]/[facility] #: [id number]
[2019-06-06 13:02] LABS: Urine Appearance Clear; Urine Bilirubin Negative (Negative); Urine Blood 3+ (Negative); Urine Color Yellow; Urine Glucose Negative (Negative); Urine Ketones Negative (Negative); Urine Nitrite Negative (Negative); Urine Protein Negative (Negative); Urine Specific Gravity 1.016 (1.010-1.030); Urine Urobilinogen Negative (Negative)
[2019-06-06 13:05] LABS: Urine Bacteria Absent (Absent); Urine Red Blood Cell 3+(>10/hpf) (Absent); Urine White Blood Cell 2+(11-20/hpf) (Absent)
[2019-06-06 13:21] LABS: Blood Urea Nitrogen 20 mg/dL (6-24); EGFR African American 100.6 (>60); EGFR Non-African American 83.1 (>60)
[2019-06-06] MEDS ORDERED: Norepinephrine 16MCG/ML IVPRE* 0 MCG/0 ML BAG IV ONE (15:03)
[2019-06-06 16:58] LABS: Troponin I 1.94 ng/mL (<0.03)
[2019-06-06] MEDS ORDERED: Atorvastatin* 80 MG TAB PO SCH (17:00)
[2019-06-06] MEDS ORDERED: Iodixanol* (CONTRAST) 320 MG/ML 100 ML SDV IV ONE (17:03)
--- NOTE | 2019-06-06 20:05 | PN ---
Hospitalist Progress Note Date of Service: 06/06/19 HOSPITALIST ADDENDUM Case d/w Urology (Dr Amador) - since patient's hematuria started after heparin initiation, hematuria is likely heparin induced. Of note, patient was on Aspirin and Plavix as outpatient with no issues. He recommended 20Fr Russell catheter placement to avoid obstruction by clot. If hematuria progresses, patient may require bladder irrigation. He also recommended CT urogram to r/o renal lesion as hematuria source; it was negative for renal lesions. As per Dr Amador, bladder source of bleeding can be controlled even with DAPT on board and they would not perform any surgical procedure before patient has his Cardiology procedure (including stents) anyway. As per Urology, patient can proceed with cardiac cath, drug eluting stent, and DAPT for 6 months.
[2019-06-06 20:49] LABS: Troponin I 1.17 ng/mL (<0.03)
[2019-06-06] MEDS ORDERED: Ropinirole TAB* 0.5 MG TAB PO SCH (21:00)
[2019-06-06] MEDS ORDERED: Amitriptyline TAB* 50 MG PO SCH (21:00)
[2019-06-07] MEDS: Metoprolol Tartrate TAB* 25 MG PO SCH ×2 (02:12→09:03)
[2019-06-07 04:10] LABS: ABS Eosinophils 0.2 10^3/ul (0-0.6); ABS Monocytes 0.8 10^3/ul (0-0.8); ABS Neutrophils 7.7 10^3/ul (1.5-7.7); Eosinophil % 1.9 %; Hematocrit 41 % (42-52); Hemoglobin 13.1 g/dL (14.0-18.0); Lymphocyte % 10.6 %; Mean Corpuscular HGB Conc 32 g/dL (31-36); Mean Corpuscular Hemoglobin 30 pg (27-31); Mean Corpuscular Volume 93 fL (80-94); Platelet Count 203 10^3/uL (150-450); Red Blood Count 4.44 10^6 /uL (4.18-5.48); Red Cell Distribution Width 14 % (10-15); White Blood Count 9.7 10^3/uL (3.5-10.8)
[2019-06-07 04:21] LABS: BUN/Creatinine Ratio 18.6 (8-20); Calcium 8.6 mg/dL (8.6-10.3); EGFR African American 104.6 (>60); EGFR Non-African American 86.5 (>60); Potassium 4.3 mmol/L (3.5-5.0)
[2019-06-07] MEDS ORDERED: NS 0.9% 1000 ML** 1,000 ML IV SCH (06:00)
[2019-06-07] MEDS: Aspirin EC TAB* 81 MG TAB.EC PO SCH ×2 (06:44→08:41)
[2019-06-07] MEDS: Lisinopril TAB* 5 MG PO SCH ×2 (06:44→08:41)
[2019-06-07] MEDS: Clopidogrel TAB* 75 MG PO SCH ×2 (06:44→08:41)
[2019-06-07] MEDS ORDERED: fentaNYL* 50 MCG/ML 2 ML VIAL (100 MCG VIAL) ONE (07:12)
[2019-06-07] MEDS ORDERED: Heparin 2 UNITS/ML IVPREMIX* 2,000 ML IV ONE (07:12)
[2019-06-07] MEDS ORDERED: Midazolam* 1 MG/ML 5 ML VIAL (5 MG) ONE (07:12)
[2019-06-07] MEDS ORDERED: VERAPAMIL 2.5 MG/ML 2 ML VIAL ** 5 mg/2 ml ONE (07:12)
[2019-06-07] MEDS ORDERED: Heparin(*) 1000 UNIT/ML 10 ML VIAL CATH LAB IV ONE (07:12)
[2019-06-07] MEDS ORDERED: nitroGLYCERIN DRIP* 25,000 MCG/250 ML BTL ONE (07:12)
[2019-06-07] MEDS ORDERED: Lidocaine 1% INJ* 10 MG/ML 30 ML SDV ONE (07:13)
[2019-06-07] MEDS ORDERED: Iohexol 350 (CONTRAST) 200 ML MDV IV ONE ×2 (07:13)
[2019-06-07] MEDS: Heparin DRIP 25,000 UNITS(*) 25,000 UNITS/500 ML BAG IV SCH (09:03)
[2019-06-07] MEDS: Cholecalciferol TAB* 1000 UNITS PO SCH (09:06)
[2019-06-07] MEDS: Vitamin THERAPEUTIC TAB PO SCH (09:07)
--- NOTE | 2019-06-07 10:19 | CATH ---
CC: Dr. Chris Lal; Dr. Clement Salazar; Dr. Mark Amador; Dr. Moisés Jerome at [facility] [place] [facility] * CARDIAC CATHETERIZATION REPORT: DATE OF PROCEDURE: 06/07/19 INDICATION FOR THE PROCEDURE: The patient presents with non-ST segment elevation myocardial infarction with mildly reduced left ventricular systolic function globally now for coronary arteriography to rule out the presence of critical CAD. PROCEDURE: Coronary arteriography. CONSENT: The patient was interviewed and examined in the intensive care unit, where the risk and benefits were explained, he understood and wished to proceed. APPROACH: The right radial artery was assessed by ultrasound and found to be acceptable for an approach and as such this was the approach utilized. PRECARDIAC CATHETERIZATION LABORATORY RESULTS: Hemoglobin and hematocrit of 13.1 and 41 with platelet count of 203,000. BUN and creatinine 16 and 0.86. Sodium 134, potassium of 4.3, chloride 101, bicarb 24. Troponin-I 0.17. EQUIPMENT UTILIZED: 1. Right radial artery sheath with a 6-Australian glide sheath slender. 2. Diagnostic coronary catheter with a 5-Australian TIG-4 catheter. 3. Diagnostic guidewire was a 260 length [place] curved guidewire. 4. The closure device utilized with a Vasc Band regular. MEDICATIONS GIVEN: Included Xylocaine locally, the radial artery cocktail of 300 mcg of nitroglycerin and 3 mg of verapamil. An additional 2000 units of heparin were given due to a low ACT. A 12.5 mcg of fentanyl were given for back discomfort. DESCRIPTION OF PROCEDURE: The patient was brought to the cardiovascular laboratory and a formal timeout was performed. Under ultrasound guidance the right radial artery was cannulated and the sheath was placed. Coronary arteriography was performed. Following this the sheath and cath were removed and the hemostasis was obtained with Vasc Band. The total contrast used was 40 cc of Omnipaque dye. The radiation exposure included 3.7 minutes of fluoro time. The air kerma radiation was 1164 milligray. The DAP radiation was 5239 microgray/meter square. RESULTS: CORONARY ARTERIOGRAPHY: A. Right coronary artery - a dominant vessel supplying several acute marginal branches with a large low-lying one that paralleled the PDA in addition to the PDA and a bifurcating posterior left ventricular branch. There was heavy calcification seen throughout the proximal and midportion of the vessel. There was an area of stenosis that appeared eccentric in nature with calcium involved with a narrowing of at least 70%. Past this point with the takeoff of the acute marginal branch larger in nature that paralleled the PDA. The continuation of the right coronary artery had a somewhat diffusely diseased area immediately past this point with narrowing that appeared to me as much as 70%. B. Left coronary artery: 1. Left main: There was tapering at the distal left main with significant haziness suggesting the presence of a critical lesion that in its worst view appeared to be 75% to 80%. The ostium of the LAD appeared to have at least 60% stenosis. Heavy calcification was seen in this as well. 2. Left anterior descending artery: The left anterior descending artery supplied a high first diagonal branch followed by continuation to the apical region. There was mild narrowing noted just after the first septal broodmare barn groom, but no critical stenosis was seen in the LAD system. The first diagonal branch had a mild-to- moderate disease in its proximal portion with reduction noted approximately 45% to 50%. 3. Circumflex artery - a nondominant vessel supplying a very thin first and second obtuse marginal branch with a moderate size bifurcating mid obtuse marginal branch and ending in a low lying bifurcating obtuse marginal branch. Of note, in the proximal to midportion prior to the mid bifurcating obtuse marginal branch, there was an eccentric area of stenosis noted that appeared in its worst view to be 65% to 70%, appearing less in other views. OVERALL ASSESSMENT: Significant coronary artery disease involving critical left and distal left main lesion with extension into LAD with heavy calcification as well as proximal to mid circumflex moderate to significant disease and mid right coronary artery significant narrowing. Of note, with regard to the right coronary artery there appears to be an eccentric significant stenosis past the takeoff of a mid acute marginal branch prior to the posterior descending artery, which may suggest that separate grafting to both the acute marginal branch and the distal right coronary artery are needed. This will be further assessed by Dr. Moisés Jerome. Of note, I also discussed this case personally with Dr. Jerome and recommended that the patient have his lungs assessed as well as his carotid arteries in light of history of moderate to significant disease in the left carotid artery by ultrasound. He understood this and took this on advisement. One other issue that the patient has been on Plavix and clearly will need to be delayed in his therapy for open heart surgery until the Plavix has worn off. For now, we will continue the heparin drip for the transfer to [facility]. The case was also discussed with the primary hospitalist Dr. Héctor Dos Santos who will be facilitating the transfer. [id number]/[facility] #: [id number] [facility]
--- NOTE | 2019-06-07 10:26 | DS ---
CC: Dr. Lal; Dr. Gabriel; Dr. Chase; Dr. Nagel; Dr. Salazar; Dr. Young; Dr. Dario Jerome at [facility] * DISCHARGE SUMMARY/TRANSFER SUMMARY: DATE OF ADMISSION: 06/06/19 DATE OF TRANSFER: 06/07/19 PRIMARY CARE PROVIDER: Dr. Lal. TUBE ROOM SUPERVISOR: Dr. Gabriel. VASCULAR SURGEON: Dr. Chase. UROLOGIST: Dr. Nagel. CONSULTING TUBE ROOM SUPERVISOR: Dr. Salazar. CONSULTING SIDING COREBOARD INSPECTOR: Dr. Young. ACCEPTING CARDIOTHORACIC SURGEON: Dr. Dario Jerome at [facility]. DISCHARGE DIAGNOSIS: ST elevation myocardial infarction. SECONDARY DIAGNOSES: 1. Bladder CA (carcinoma in situ), status post excision biopsies, last one in November 2018 with pathology revealing urothelial carcinoma in situ. 2. Hypertension. 3. Hyperlipidemia. 4. Left internal carotid artery stenosis between 50% and 69%. 5. Hyperglycemia with probable type 2 diabetes, not on treatment. MEDICATIONS AT THE TIME OF TRANSFER: 1. Acetaminophen 650 mg p.o. q.6 hours as needed for pain or fever. 2. Amitriptyline 50 mg p.o. bedtime. 3. Aspirin 81 mg p.o. daily. 4. Atorvastatin 80 mg p.o. daily. 5. Cholecalciferol 1000 units p.o. daily. 6. Clopidogrel 75 mg p.o. daily. 7. Heparin drip at 1000 units an hour. 8. Lisinopril 5 mg p.o. daily. 9. Metoprolol tartrate 25 mg p.o. q.6 hours. 10. Normal saline 100 mL an hour. 11. Ropinirole 0.25 mg p.o. at bedtime. 12. Multivitamin 1 tablet p.o. daily. HOSPITAL COURSE: Mr. Alarcon is a 74-year-old male with a past medical history as stated above that presented to the emergency room with his third episode of severe chest pain waking him up from sleep in a period of 2 weeks. In the emergency room, he was found to have an ST-elevation [place] with an initial troponin of 1.1. Shortly after arrival to the emergency room, the patient's chest pain completely resolved and at that point decision was for medical management in preparation for cardiac cath. The patient had a transthoracic echocardiogram that showed an ejection fraction of 40% to 45% with diffuse hypokinesis with regional variations. The patient was treated with aspirin, Plavix, heparin and he was taken to the [facility] by Dr. Wang Young on 06/07/19 and it revealed left main critical disease involving the takeoff of LAD and circumflex as well as mid RCA with significant disease, but with good distal vessels. He discussed the case with Dr. Dario Jerome at [facility] and with the patient and decision was made to transfer the patient for CABG. Of note, the patient has a history of bladder CA and although he had not experienced any hematuria as outpatient for a long time, he did develop hematuria after he was started on a heparin drip. The case was discussed with Urology (Dr. Amador) who recommended placement of a 20-[place] Russell catheter to avoid obstructions due to blood. He also stated it was okay for the patient to proceed with cardiac cath interventions as needed. The patient had a CT urogram that showed a stable subcentimeter low attenuation lesion of the left kidney that is too small to characterize and urinary bladder wall thickening and cannot exclude cystitis or urinary bladder neoplasm. The patient will need to follow up with Urology after his cardiac procedure, especially if his hematuria persists. Also, of note is the fact that the patient has known peripheral arterial disease with left carotid stenosis. The patient states that he had high sugars before, but is not aware if he has diabetes. He had a random glucose of 200 and his A1c is pending at this time, but I suspect he probably has undiagnosed type 2 diabetes. The patient is medically stable to be transferred at this time. PHYSICAL EXAM: Vital Signs: Temperature 97.5, heart rate 75, respiratory rate 19, oxygen saturation is 93% on room air, blood pressure is 130/66. General: The patient is a pleasant elderly gentleman lying in bed in no acute distress. CVS: Normal S1, S2. Regular rate and rhythm. Chest: Breath sounds bilaterally with no added sounds. Abdomen is soft, bowel sounds present. Extremities: No edema. Good peripheral pulses. Neuro: He is alert, oriented x3. Able to move all 4 extremities. Face is symmetric. Speech is clear. DIET: N.p.o. diet. ACTIVITY: Bedrest. DISPOSITION: Transfer to [facility]. CONDITION AT THE TIME OF DISCHARGE: Fair. STATUS WHILE IN THE HOSPITAL: Inpatient. Please keep in mind this is a summarized version of this patient's hospital stay. If you need more information, please feel free to call me at [phone] or obtain the full medical records. TIME SPENT: Approximately 50 minutes were spent to complete this discharge. [id number]/CPS #: [id number] MTDD
[2019-06-07 10:59] VITALS: BP 129/58
== END 2019-06-07 10:40 | disposition short-term general hospital (02) | DRG 281 ==
LOC: ED 05:04 → ICU 10:38
PROVIDERS: ADMIT Internal Medicine; ATTEND Internal Medicine
PROC: B211YZZ Fluoroscopy of Multiple Coronary Arteries using Other Contrast (ICD-10-PCS; 2019-06-07)
PROC: 4A023N7 Measurement of Cardiac Sampling and Pressure, Left Heart, Percutaneous Approach (ICD-10-PCS; principal; 2019-06-07 07:00)
DX: I21.3 ST elevation (STEMI) myocardial infarction of unspecified site (principal); D68.32 Hemorrhagic disorder due to extrinsic circulating anticoagulants; J98.11 Atelectasis; I42.8 Other cardiomyopathies; I25.10 Atherosclerotic heart disease of native coronary artery without angina pectoris; D09.0 Carcinoma in situ of bladder; I10 Essential (primary) hypertension; E75.6 Lipid storage disorder, unspecified; I65.22 Occlusion and stenosis of left carotid artery; E11.65 Type 2 diabetes mellitus with hyperglycemia; J44.9 Chronic obstructive pulmonary disease, unspecified; R31.9 Hematuria, unspecified; T45.515A Adverse effect of anticoagulants, initial encounter; Y92.230 Patient room in hospital as the place of occurrence of the external cause; K57.30 Diverticulosis of large intestine without perforation or abscess without bleeding; E11.51 Type 2 diabetes mellitus with diabetic peripheral angiopathy without gangrene; K80.20 Calculus of gallbladder without cholecystitis without obstruction; N28.9 Disorder of kidney and ureter, unspecified; Z79.82 Long term (current) use of aspirin; Z79.899 Other long term (current) drug therapy; Z87.891 Personal history of nicotine dependence; Z79.02 Long term (current) use of antithrombotics/antiplatelets
CPT/HCPCS: 36415; 71045; 74178; 76377; 80048; 80053; 81003; 81015; 82565; 83036; 83605; 83721; 83880; 84484; 84520; 85025; 85347; 85610; 85730; 87086; 87641; 93005; 93306; 93454; 93978; 99156; 99285; A9270-GY; J1644; J2250; J2270; J2405; J3010; Q9967